=== PATIENT | male | born 1955 | race Asian ===

== ENCOUNTER 2023-05-23 09:44 | Outpatient (CLI) | payer OTHER | END 2023-05-23 19:00 | disposition home or self-care (01) | LOC: MRI 09:44 | PROVIDERS: ATTEND Student in an Organized Health Care Education/Training Program | DX: M54.12 Radiculopathy, cervical region (principal); M47.812 Spondylosis without myelopathy or radiculopathy, cervical region; M54.16 Radiculopathy, lumbar region; M47.816 Spondylosis without myelopathy or radiculopathy, lumbar region; M48.062 Spinal stenosis, lumbar region with neurogenic claudication ==